=== PATIENT | male | born 1960 | race Caucasian/White ===

== ENCOUNTER 2019-03-10 11:54 | Emergency (ER) | payer OTHER ==
[~2019-03-10] VITALS: Wt 108.9 kg
[~2019-03-10 11:54] MED LIST: AMOX500C2 PO; IBUP800T48 PO; LORA1TAB PO
[2019-03-10 11:56] VITALS: BP 160/89; PULSE 78; RESP 18
--- NOTE | 2019-03-10 12:22 | ERD ---
ER Documentation Chief Complaint Chief Complaint TOOTH ACHE HPI 58-year-old male presents with right-sided lower dental pain for the past 2 days. The pain radiates to his ear. Unsure if he had a fever. He is tolerating oral intake but has pain with chewing and swallowing. No nausea vomiting or diarrhea. Has not yet seen a dentist. Also states she is been having anxiety secondary to moving situation at home and would like some medication for anxiety. ROS All systems reviewed and are negative except as per history of present illness. Medications Home Meds Active Scripts Lorazepam* (Lorazepam*) 1 Mg Tablet, 1 MG PO Q8, #10 TAB Prov:LUCINDA RUIZ NELSON 03/10/19 Ibuprofen* (Motrin*) 800 Mg Tab, 800 MG PO Q6, #30 TAB Prov:LUCINDA RUIZ NELSON 03/10/19 Lorazepam* (Lorazepam*) 1 Mg Tablet, 1 MG PO Q8, #10 TAB Prov:LUCINDA RUIZ NELSON 03/10/19 Amoxicillin* (Amoxicillin*) 500 Mg Cap, 500 MG PO BID for 7 Days, CAP Prov:LUCINDA RUIZ NELSON 03/10/19 FmHx Family History: No diabetes Physical Exam Vitals Vital Signs Date Temp Pulse Resp B/P (MAP) Pulse Ox O2 O2 Flow FiO2 Time Delivery Rate 03/10/19 97.6 78 18 160/89 99 11:56 (112) Physical Exam INITIAL VITAL SIGNS: Reviewed by me GENERAL: Awake, alert and oriented x 4, well appearing, nontoxic, speaking in full sentences. No acute distress HEAD: Atraumatic NECK: Supple. No masses. Full range of motion. No meningismus. No midline tenderness. EYES: EOMI. PERRL. EAR: No tenderness over the mastoids bilaterally. No exudates in the canals. TMs nonerythematous. NOSE: Normal nose. THROAT: Poor dentition, no tonsillar erythema or edema, uvula midline RESPIRATORY: Clear to auscultation bilaterally. Symmetric chest wall rise. No wheezing or rales. No accessory muscle use. CV: Regular rate and rhythm. No murmurs, rubs, or gallops. Procedures/MDM 58-year-old has dental pain. He is given prescription for ibuprofen and amoxicillin. He also has anxiety and was given a prescription for small amount of Ativan. He tried hydroxyzine in the past without any relief. Patient counseled regarding my diagnostic impression and care plan. Prior to discharge all questions answered. Pt agrees with treatment plan and understands strict return precautions. Pt is instructed to follow up with primary care provider within 24-48 hours. Precautionary instructions provided including instructions to return to the ER if not improving or for any worsening or changing symptoms or concerns. Departure Diagnosis: Primary Impression: Toothache Additional Impression: Anxiety Condition: Stable Patient Instructions: Dental Pain Referrals: [facility] ([facility] walk in clinic) Additional Instructions: Call your primary care doctor TOMORROW for an appointment during the next 1-2 days.See the doctor sooner or return here if your condition worsens before your appointment time. LUCINDA RUIZ PA-C Mar 10, 2019 12:22
== END 2019-03-10 12:22 | disposition home or self-care (01) ==
LOC: E/R 11:54
DX: K08.89 Other specified disorders of teeth and supporting structures (principal); F41.9 Anxiety disorder, unspecified
CPT/HCPCS: 99283